=== PATIENT | male | born 1935 | race Caucasian/White ===

== ENCOUNTER 2023-07-11 12:19 | Emergency (ER) | payer MEDICARE, OTHER ==
[~2023-07-11] VITALS: Ht 175.3 cm; Wt 190.0 kg
[2023-07-11] MEDS: normal saline 1000ML IV soln IVB ONE ×2 (13:29→19:27)
[2023-07-11 13:55] LABS: BILIRUBIN,URINE NEGATIVE (Neg); CLARITY,URINE SLIGHTLY CLOUDY (Clear); COLOR,URINE YELLOW (Yellow); GLUCOSE, URINE NEGATIVE (Neg); KETONES,URINE NEGATIVE (Neg); LEUKOCYTE ESTERASE ,URINE NEGATIVE (Neg); NITRITES, URINE NEGATIVE (Neg); OCCULT BLOOD,URINE SMALL (Neg); PROTEIN,URINE 30 mg/dl (Neg); UROBILINOGEN,URINE 0.2 E.U/dL (0.2-1.0)
[2023-07-11 14:16] LABS: UA COLLECTION TYPE NON-SPECIFIED
[2023-07-11 14:18] LABS: BACTERIA,URINE NONE SEEN /HPF (Neg); HYALINE CASTS 0-3 /LPF (NEGATIVE); RBC,URINE 0-2 /HPF (0-2); SQUAMOUS EPITHELIAL CELL,UR NONE SEEN /LPF (FEW); WBC,URINE 0-4 /HPF (0-4)
[2023-07-11 14:20] LABS: BASOPHILS % (AUTO) 0.3 % (0-1); EOSINOPHILS % (AUTO) 0.2 % (0-6); HEMATOCRIT 36.7 % (42.0-52.0); HEMOGLOBIN 12.5 g/dl (14.0-17.9); LYMPHOCYTES # (AUTO) 0.3 X10'3 (1.1-4.8); LYMPHOCYTES % (AUTO) 2.4 % (21-51); MEAN CORPUSCULAR HEMOGLOBIN 31.8 PG (27.0-31.0); MEAN CORPUSCULAR VOLUME 93.5 FL (78-98); MEAN PLATELET VOLUME 8.1 FL (7.4-10.4); MONOCYTES # (AUTO) 0.8 X10'3 (0-0.9); MONOCYTES % (AUTO) 7.1 % (2-12); NEUTROPHILS # (AUTO) 9.7 X10'3 (1.8-7.7); PLATELET COUNT 185 X10'3 (140-440); RED BLOOD COUNT 3.92 X10'6 (4.70-6.10); RED CELL DISTRIBUTION WIDTH 14.7 % (11.5-14.5); WHITE BLOOD COUNT 10.8 X10'3 (4.5-11.0)
[2023-07-11 14:37] LABS: ALBUMIN 3.1 G/DL (3.4-5.0); ANION GAP 10 (8-16); BLOOD UREA NITROGEN 27 MG/DL (7-18); C-REACTIVE PROTEIN 4.93 MG/DL (0.0-0.5); CALCIUM 8.3 MG/DL (8.5-10.1); CHLORIDE 103 MMOL/L (99-107); CREATININE 1.35 MG/DL (0.60-1.10); GLUCOSE 133 MG/DL (70-104); POTASSIUM 3.6 MMOL/L (3.5-5.1); PRO BRAIN NATRIURETIC PEPTIDE 430 PG/ML (0-450); SODIUM 139 MMOL/L (135-145); TOTAL CARBON DIOXIDE 25.9 MMOL/L (24-32); eCRCL 38 ML/MIN; eGFR 50 ML/MIN
[2023-07-11 14:38] LABS: APTT 30 SECONDS (22-32); INR 1.1 INR
[2023-07-11] MEDS: aspirin 325mg tablet, delayed-release (Ecotrin) PO ONE (18:05)
[2023-07-11] MEDS: morphine 4 MG/ML inj SYRINge IV ONE (18:05)
[2023-07-11] MEDS: ondansetron/PF 4mg/2ml inj IV ONE (18:05)
[2023-07-11] MEDS: normal saline 500ml IV soln 500 ML IV SCH (18:05)
[2023-07-11] MEDS: nitroGLYCERIN 1gm ointment UD TP ONE (18:05)
[2023-07-11] MEDS: albuterol 2.5 MG/3 ML nebule ONE (18:13)
[2023-07-11] MEDS: albuterol 2.5 MG/3 ML nebule NEB ONE (18:23)
[2023-07-11 18:25] VITALS: PULSE 77; RESP 18; O2SAT 95
[2023-07-11 18:27] VITALS: PULSE 77
[2023-07-11] MEDS: dexamethasone sod phosphate 10mg/ml inj IV STA (19:26)
[2023-07-11] MEDS: CefTRIAXone 2gm/D5W 50ml BAG 50 ML IV ONE (19:27)
[2023-07-11] MEDS: azithromycin/NS 500mg/250ml 250 ML IV ONE (20:17)
[2023-07-12 09:26] VITALS: TEMP 97.6
[2023-07-12] MEDS: normal saline 500ml IV soln 500 ML IV SCH (13:24)
[2023-07-12] MEDS ORDERED: DEC4T PO (17:20)
[2023-07-12] MEDS: dexamethasone 4mg tablet PO ONE (18:04)
[2023-07-12 19:08] VITALS: BP 137/54; PULSE 59; RESP 16; O2SAT 95
== END 2023-07-12 19:14 | disposition home or self-care (01) ==
LOC: ER 12:20
DX: U07.1 COVID-19 (principal); G91.2 (Idiopathic) normal pressure hydrocephalus; R05.9 Cough, unspecified
CPT/HCPCS: 36415; 70450; 71045; 73521; 80048; 81001; 83605; 83735; 83880; 84145; 84484; 85025; 85610; 85651; 85730; 86140; 87040; 87502; 87503; 87811; 93005; 94640; 96361; 96365; 96366; 96368; 96375; 99291; A4314; J0456; J0696; J1100; J7030; J7040; 94760; 99285; A4615; A6590

== ENCOUNTER 2025-01-20 16:12 | Emergency (ER) | payer MEDICARE, OTHER ==
[~2025-01-20 16:12] MED LIST: CARV25TA3 PO; FINA5TAB11 PO; HYDR25TA4 PO; SIMV-45 PO
--- NOTE | 2025-01-20 16:47 | RADIOLOGY REPORT ---
EXAM: DI CHEST,SINGLE VIEW HISTORY: CP COMPARISON: DI CHEST,SINGLE VIEW on DOS: 07/11/23 TECHNIQUE: PA upright view of the chest was performed. FINDINGS: No pneumothorax, consolidative infiltrates, or pulmonary edema. The heart is not enlarged. There are old bilateral rib fractures. IMPRESSION: No acute intrathoracic process.
--- NOTE | 2025-01-20 16:59 | ELECTROCARDIOGRAPH REPORT ---
[facility] Test Date: 2025-01-20 Test Time: 16:57:10 Pat Name: RJ URIAS Department: [facility] Patient ID: [id number] Room: Gender: M Professor Of Voice: : 1935 Requested By: KEITH YOUNG Order Number: [id number] Reading MD: Measurements Intervals [place] Rate: 48 P: 67 KS: 265 QRS: 30 QRSD: 100 T: 25 QT: 435 QTc: 389 Interpretive Statements Sinus bradycardia Prolonged KS interval Please click the below link to view image of tracing.
[2025-01-20 17:12] LABS: MEAN PLATELET VOLUME 9.0 FL (7.4-10.4); RED CELL DISTRIBUTION WIDTH 13.4 % (11.5-14.5)
[2025-01-20 17:28] LABS: CREATININE 1.29 MG/DL (0.60-1.10); PRO BRAIN NATRIURETIC PEPTIDE 150 PG/ML (0-450); TOTAL CARBON DIOXIDE 35.9 MMOL/L (24-32); eGFR 52 ML/MIN
--- NOTE | 2025-01-20 20:18 | Physician Documentation ---
History of Present Illness ~ General Chief Complaint: Bradycardia Stated Complaint: LOW HR Time Seen by MD: 20:12 History of Present Illness Initial Comments Patient presents to the emergency room for evaluation of low heart rate and high blood pressure. Patient states that he gets his vitals taken all the time routinely and that is why he is vitals were taken. He states he feels like himself right now there has been no change of any feelings of dizziness. Reports compliance with his medications. Denies chest pain. Medication Reconciliation Allergies: Coded Allergies: No Known Allergies (Unverified , 07/11/23) Scheduled Carvedilol (Carvedilol), 1 TAB PO BID, (Reported) Finasteride (Finasteride), 1 TAB PO DAILY, (Reported) Hydrochlorothiazide (Hydrochlorothiazide), 1 TAB PO DAILY, (Reported) Simvastatin (Simvastatin), 1 TAB PO HS, (Reported) Past Medical History Past Medical History: Hernia Past Surgical History: noncontributory Alcohol Use: None Drug Use: none Lives with: Alone Lives In: Other Review of Systems ROS All review of systems negative except as per HPI Physical Exam Physical Exam Vital Signs: Temperature: 98.1, Source: Temporal, Heart Rate: 50, Respiratory Rate: 16, BP: 195/79, Pulse Oximetry: 97 Oxygen Flow Rate: 0 Physical Exam General: Patient is awake, alert, oriented x4 in no acute distress and well appearing.~ Head: Normocephalic and atraumatic. Eyes: Conjunctival normal. EOMI. PERRL. ENT: Mucous membranes moist. Neck: Supple, trachea is midline. Chest: Clear to auscultation bilaterally without rales, rhonchi, or wheezes. There is no accessory muscle use or retractions. Cardiac: RRR without murmurs, gallops, or rubs. Abd: Soft, nondistended, nontender, with normoactive bowel sounds. No guarding, rebound, or rigidity. Progress Results/Orders Results/Orders Completed Orders - JAYA BEASLEY MD Hydralazine Inj. (Apresoline Inj.) (01/20/25 20:25) Losartan Tablet (Cozaar Tablet) (01/20/25 20:40) Medications Received in ER Medications (Trade) Dose Ordered Sig/Eunice Route PRN Reason Start Time Stop Time Status Last Admin Dose Admin (Apresoline inj.) 10 mg ONCE ONCE IV 01/20/25 20:25 01/20/25 20:26 DC 01/20/25 20:53 10 MG (Cozaar tablet) 50 mg ONCE ONCE PO 01/20/25 20:40 01/20/25 20:41 DC 01/20/25 20:53 50 MG Vital Signs 01/20/25 01/20/25 01/20/25 01/20/25 16:15 18:21 20:53 20:53 Temp 98.4 98.1 Pulse 50 50 58 53 Resp 14 16 B/P (MAP) 145/82 195/79 (117) Pulse Ox 97 97 O2 Flow Rate 0 0 01/20/25 20:56 Pulse 57 Resp 15 B/P (MAP) 193/81 (118) Pulse Ox 98 O2 Flow Rate 0 Laboratory Tests Test 01/20/25 16:44 01/20/25 18:39 01/20/25 19:25 White Blood Count 9.5 Red Blood Count 3.94 L Hemoglobin 12.6 L Hematocrit 36.6 L Mean Corpuscular Volume 92.9 Mean Corpuscular Hemoglobin 31.9 H Mean Corpuscular Hemoglobin Concent 34.4 Red Cell Distribution Width 13.4 Platelet Count 193 Mean Platelet Volume 9.0 Neutrophils (%) (Auto) 80.5 H Lymphocytes (%) (Auto) 10.5 L Monocytes (%) (Auto) 7.0 Eosinophils (%) (Auto) 1.6 Basophils (%) (Auto) 0.4 Neutrophils # (Auto) 7.6 Lymphocytes # (Auto) 1.0 L Monocytes # (Auto) 0.7 Eosinophils # (Auto) 0.2 Basophils # (Auto) 0.0 CBC Comment Sodium Level 145 Potassium Level 3.6 Chloride Level 104 Carbon Dioxide Level 35.9 H Anion Gap 5 L Blood Urea Nitrogen 36 H Creatinine 1.29 H Estimated GFR/1.73 m2 52 BUN/Creatinine Ratio 27.9 H Glucose Level 89 Calcium Level 9.1 Troponin I High Sensitivity 10 13 13 Pro-B-Type Natriuretic Peptide 150 Albumin 3.3 L Chemistry Comments Troponin I High Sens Percent Delta 30 0 Troponin I Hi Sens Absolute Change 3 0 EKG/XRAY/CT/US/VASC/MRI EKG : Additional Comment EKG interpreted by myself shows time of 1657, rate 48, sinus bradycardia, normal axis, no ST changes Chest X-Ray : Additional Comments Exam: CHEST,SINGLE VIEW EXAM: DI CHEST,SINGLE VIEW HISTORY: CP COMPARISON: DI CHEST,SINGLE VIEW on DOS: 07/11/23 TECHNIQUE: PA upright view of the chest was performed. FINDINGS: No pneumothorax, consolidative infiltrates, or pulmonary edema. The heart is not enlarged. There are old bilateral rib fractures. IMPRESSION: No acute intrathoracic process. Medical Decision Making Findings Patient presents to the emergency room for abnormal vitals. Patient is asymptomatic. Given elevated blood pressures that has concern for possible hypertensive emergency therefore emergent labs ordered and that has no evidence of end-organ damage and patient that has not suffering from hypertensive emergency. Patient does have bradycardia however upon review of patient's previous visits has history of bradycardia. He is on a beta-marina. Blood pressures improved. Departure Disposition: HOME / SELF CARE / HOMELESS Impression: Primary Impression: Bradycardia Additional Impression: Uncontrolled hypertension Condition: Stable Discharge Instructions: Bradycardia, Adult Additional Instructions: Speak with your doctor tomorrow regarding possible medication adjustments/additions to control patient's blood pressure and heart rate. Labs reassuring today. No evidence of hypertensive emergency. Patient is bradycardia at this juncture is asymptomatic. Referrals: NO PRIMARY CARE PROVIDER (PCP) Signature Scribe Signature: No scribe Attestation: The note accurately reflects work and decisions made by me.Jaya Beasley MD 01/20/25 21:04 JAYA BEASLEY MD Jan 20, 2025 20:18
[2025-01-20] MEDS: hydrALAZINE 20mg/ml inj. IV ONE (20:53)
[2025-01-20 22:12] VITALS: BP 177/87; PULSE 63; RESP 16; TEMP 98.1; O2SAT 98
== END 2025-01-20 22:14 | disposition home or self-care (01) ==
LOC: ER 16:13
DX: R00.1 Bradycardia, unspecified (principal); I10 Essential (primary) hypertension; Z79.899 Other long term (current) drug therapy; Z60.2 Problems related to living alone
CPT/HCPCS: 36415; 71045; 80048; 83880; 84484; 85025; 93005; 96374; 99285; J0360